=== PATIENT | female | born 1950 | race Caucasian/White ===

== ENCOUNTER 2019-05-10 09:12 | Outpatient (CLI) | payer OTHER ==
--- NOTE | 2019-05-10 11:04 | BD ---
DEXA DENSITOMETRY: INDICATIONS: Postmenopausal osteoporosis screening. FINDINGS: LUMBAR SPINE BMD (g/cm2) T-SCORE L1 0.786 -1.9 L2 0.954 -0.7 L3 0.930 -1.4 L4 0.862 -1.8 TOTAL 0.885 -1.5 TOTAL LUMBAR DENSITY ON 08/01/2014: 0.900 BMD (g/cm2) T-SCORE FEMORAL NECK 0.675 -1.6 TOTAL 0.807 -1.1 TOTAL FEMUR DENSITY ON 08/01/2014: 0.840 IMPRESSION: Bone mineral density of the lumbar spine and femoral neck both indicate osteopenia. TEN YEAR FRACTURE RISK: Major osteoporotic fracture: 9.9% Hip fracture: 1.3% POS: OFF
== END 2019-05-10 09:13 | disposition home or self-care (01) ==
LOC: BICMAMMO 09:12
PROVIDERS: ATTEND Family Medicine
DX: Z13.820 Encounter for screening for osteoporosis (principal); Z78.0 Asymptomatic menopausal state; E55.9 Vitamin D deficiency, unspecified; M85.89 Other specified disorders of bone density and structure, multiple sites
CPT/HCPCS: 77080